=== PATIENT | female | born 1985 | race Caucasian/White ===

== ENCOUNTER 2016-11-27 07:35 | Day surgery (SDC) | payer MEDICAID ==
[~2016-11-27] VITALS: Ht 165.1 cm; Wt 52.3 kg
[~2016-11-27 07:35] MED LIST: BACL10TA PO; LORA2TAB2 PO; SODIUM CHLORIDE 0.9% 1,000 ML IV ONE
[2016-11-27] MEDS ORDERED: LIDOCAINE HCL/PF 2% 5 ML SYRINGE IVP ONE (07:36)
[2016-11-27] MEDS ORDERED: PROPOFOL 1% 20 ML VIAL IVP ONE (07:36)
[2016-11-27] MEDS ORDERED: SODIUM CHLORIDE 0.9% 1,000 ML IV ONE (08:03)
[2016-11-28] MEDS ORDERED: HYDROGEN PEROXIDE 473 ML SOLUTION TP SCH (09:00)
[2016-11-28] MEDS ORDERED: POVIDONE-IODINE 10% 120 ML SOLUTION TP SCH (09:00)
== END 2016-11-27 12:50 | disposition home or self-care (01) ==
LOC: SURGERY 07:35
PROVIDERS: ATTEND Internal Medicine Gastroenterology
DX: K94.23 Gastrostomy malfunction (principal); Y83.8 Other surgical procedures as the cause of abnormal reaction of the patient, or of later complication, without mention of misadventure at the time of the procedure; Z88.6 Allergy status to analgesic agent; Z88.8 Allergy status to other drugs, medicaments and biological substances; Z86.69 Personal history of other diseases of the nervous system and sense organs; Z98.890 Other specified postprocedural states
CPT/HCPCS: 43760; J2704; J3490; J7030

== ENCOUNTER 2021-10-24 12:44 | Day surgery (SDC) | payer MEDICAID ==
[2021-10-23 12:50] LABS: COVID AG,FIA SOURCE NASAL SWAB
[~2021-10-24] VITALS: Ht 165.1 cm; Wt 61.3 kg
[~2021-10-24 12:44] MED LIST changes: +LORA-1001 PO; -LORA2TAB2 PO; -SODIUM CHLORIDE 0.9% 1,000 ML IV ONE; +SODIUM CHLORIDE 0.9% 1,000 ML ONE
[2021-10-24] MEDS ORDERED: PROPOFOL 1% 20 ML VIAL IVP ONE (12:45)
[2021-10-24] MEDS ORDERED: LIDOCAINE/PF 2% 5 ML SYRINGE IVP ONE (12:45)
[2021-10-24] MEDS ORDERED: SODIUM CHLORIDE 0.9% 1,000 ML IV ONE (13:00)
== END 2021-10-24 15:35 | disposition home or self-care (01) ==
LOC: SURGERY 12:44
PROVIDERS: ATTEND Internal Medicine Gastroenterology
DX: K94.23 Gastrostomy malfunction (principal); G80.9 Cerebral palsy, unspecified; Z88.8 Allergy status to other drugs, medicaments and biological substances; Z79.899 Other long term (current) drug therapy; Z98.890 Other specified postprocedural states
CPT/HCPCS: 87426; 43246; C9803; J2704; J3490; J7030